=== PATIENT | female | born 1955 | race African-American/Black ===

== ENCOUNTER 2019-05-16 14:39 | Outpatient (CLI) | payer MEDICARE, OTHER ==
--- NOTE | 2019-05-16 16:37 | MMO ---
Bilateral MAMMO Bilat Screen [facility]. CLINICAL HISTORY: Patient is 64 years old and is seen for screening. The patient has no family history of breast cancer. The patient has no personal history of cancer. VIEWS: The views performed were: bilateral craniocaudal with tomosynthesis and bilateral mediolateral oblique with tomosynthesis. FILMS COMPARED: The present examination has been compared to prior imaging studies performed at MAMMOGRAM FINDINGS: There are scattered fibroglandular densities. Benign calcifications are noted bilaterally. There are no suspicious masses, suspicious calcifications, or new areas of architectural distortion. IMPRESSION: THERE IS NO MAMMOGRAPHIC EVIDENCE OF MALIGNANCY. A ROUTINE FOLLOW-UP MAMMOGRAM IN 1 YEAR IS RECOMMENDED. THE RESULTS OF THIS EXAM WERE SENT TO THE PATIENT. ACR BI-RADS Category 2 - Benign finding MAMMOGRAPHY NOTE: 1. A negative mammogram report should not delay a biopsy if a dominant of clinically suspicious mass is present. 2. Approximately 10% to 15% of breast cancers are not detected by mammography. 3. Adenosis and dense breasts may obscure an underlying neoplasm.
== END 2019-05-16 14:40 | disposition home or self-care (01) ==
LOC: BICMAMMO 14:39
PROVIDERS: ATTEND Family Medicine
DX: Z12.31 Encounter for screening mammogram for malignant neoplasm of breast (principal)
CPT/HCPCS: 77063; 77067

== ENCOUNTER 2020-12-19 21:45 | Inpatient (IN) | payer MEDICARE, OTHER ==
[~2020-12-19 21:45] MED LIST: Calcium Chloride 1 GM/10 ML Abboject SYRINGE ONE; EPINEPHrine 1 MG/10 ML Abboject SYRINGE ONE; Iopamidol-370 76% 500 ML 1 ML ONE; Sodium Bicarb 50 MEQ/50 ML Abboject 8.4% SYRINGE ONE
[2020-12-19] MEDS ORDERED: Fentanyl 100 MCG/2 ML VIAL ONE ×2 (21:56→22:28)
[2020-12-19 22:24] LABS: Hemoglobin 13.2 g/dL (12.0-16.0); Mean Corpuscular HGB CONC 31.3 g/dL (32.0-36.0); Mean Corpuscular Hemoglobin 28.9 pg (27.0-31.0); Mean Corpuscular Volume 92.3 fL (78.0-98.0); Mean Platelet Volume 8.9 fL (7.4-10.4); Platelet Count 285 thou/uL (130-400); RBC Distribution Width 14.2 % (11.5-14.5); Red Blood Cell (RBC) Count 4.56 mill/uL (4.20-5.40); White Blood Cell (WBC) Count 18.9 thou/uL (4.8-10.8)
[2020-12-19 22:30] LABS: Band 1 % (5-11); Eosinophils 1 % (0-10); Lymphocytes 37 % (21-51); MDiff Complete? YES; Monocytes 6 % (0-10); Neutrophil 53 % (42-75); Reactive Lymphocytes 1 % (0-10)
[2020-12-19] MEDS ORDERED: fentaNYL Citrate/PF 2,000 MCG in Sodium Chloride 0.9% 60 ML IV SCH (22:30)
[2020-12-19] MEDS ORDERED: Cefepime 2 GM VIAL ONE (22:31)
[2020-12-19] MEDS ORDERED: Norepinephrine 8 MG/0.9% NS 250 ML ONE (22:44)
[2020-12-19 22:49] LABS: CO2 Tension 69.1 mmHg (35.0-45.0); pH, Arterial 6.97 (7.35-7.45)
[2020-12-19 22:50] LABS: Bacteria/HPF 4+ HPF (None Seen); Bilirubin Negative (Negative); Blood, Urine 1+ (Negative); Clarity Turbid (Clear); Glucose, Urine (Dipstick) Greater than 1000 mg/dL (Negative); Ketone, Urine Negative (Negative); Leukocyte 75 Leu/uL (Negative); Nitrite 1+ (Negative); Protein, Urine (Dipstick) 100 mg/dL (Neg-Trace); Specific Gravity, Urine 1.015 (1.002-1.036); Urobilinogen Normal mg/dL (Less than 2); WBC/HPF Greater than 50 HPF (0-3)
[2020-12-19 22:50] LABS: Actual Bicarbonate (HCO3a) 14.6 mEq/L (22-28); Base Excess (BEa) -17.5 mEq/L (-2.0 to +3.0); O2 Tension (PaO2), arterial 351.6 mmHg (> 80.0)
[2020-12-19 22:51] LABS: Analyzer IN Cardio ER; Calcium, Ionized (arterial) 1.47 mmol/L (1.12-1.30); Carboxyhemoglobin (COHb) 3.8 gm% (0.0-3.0); Potassium - ABG Lab 3.74 mmol/L (3.70-5.30); Puncture Site RRA
[2020-12-19 22:52] LABS: ALV-art Gradient 275.025 mmHg (0-20)
[2020-12-19 22:58] LABS: Amphetamine Not Detected (NotDetected); Barbiturates Screen Not Detected (NotDetected); Benzodiazepine Screen Not Detected (NotDetected); Cocaine Metabolite Screen Not Detected (NotDetected); Medtox Control Line Valid? VALID (VALID); Medtox Reader # READER 4; Methadone Not Detected (NotDetected); Methamphetamine Not Detected (NotDetected); Opiate Screen Not Detected (NotDetected); Oxycodone Screen Not Detected (NotDetected); Phencyclidine (PCP) Not Detected (NotDetected); THC/Cannabinoid Screen Not Detected (NotDetected); Tricyclic Screen Not Detected (NotDetected)
[2020-12-19] MEDS ORDERED: Vancomycin 1.5 GRAM/300 ML BAG 1.5 GM in Premix Bag 1 BAG IVPB SCH (23:00)
[2020-12-19] MEDS ORDERED: Enoxaparin Sodium 80 MG/0.8 ML SYRINGE ONE (23:02)
[2020-12-19] MEDS ORDERED: Aspirin 300 MG Suppository ONE (23:02)
[2020-12-19 23:05] LABS: CKMB 2.3 ng/mL (0-6.6)
[2020-12-19 23:42] LABS: CO2 Tension 37.5 mmHg (35.0-45.0)
[2020-12-19 23:43] LABS: Actual Bicarbonate (HCO3a) 14.2 mEq/L (22-28); Base Excess (BEa) -13.1 mEq/L (-2.0 to +3.0); Carboxyhemoglobin (COHb) 2.6 gm% (0.0-3.0); Hemoglobin (Hb) 12.5 g/dL (12.0-16.0)
[2020-12-19 23:44] LABS: Analyzer IN Cardio ER; Calcium, Ionized (arterial) 1.22 mmol/L (1.12-1.30); Potassium - ABG Lab 4.61 mmol/L (3.70-5.30); Puncture Site RBA
[2020-12-19 23:45] LABS: ALV-art Gradient 253.625 mmHg (0-20)
[2020-12-19] MEDS ORDERED: Sodium Chloride 0.9% 1,000 ML IV SCH (23:45)
[2020-12-19] MEDS ORDERED: Ventilator Sedation Protocol 1 EACH FS SCH (23:45)
[2020-12-19 23:49] LABS: ALT (SGPT) 147 U/L (8-55); AST (SGOT) 231 U/L (5-34); Acetaminophen Less than 6.0 mcg/mL (10.0-30.0); Albumin 2.1 g/dL (3.4-4.8); Alcohol Less than 10 mg/dL (Less than 10); Alkaline Phosphatase 106 U/L (40-110); Anion Gap 17 mmol/L (10-20); BUN (Urea Nitrogen) 13 mg/dL (9.8-20.1); Bilirubin, Total 0.3 mg/dL (0.2-1.2); CK (CPK) 122 U/L (29-168); Calc. Creatinine Clearance 0 mL/min (70-130); Calcium 9.3 mg/dL (7.8-10.44); Chloride 119 mmol/L (98-107); Globulin 3.3 g/dL (2.4-3.5); Glucose 269 mg/dL (80-115); Potassium 5.1 mmol/L (3.5-5.1); Protein, Total 5.4 g/dL (5.8-8.1); Salicylate Less than 8.0 mg/dL (15.0-30.0); Sodium 140 mmol/L (136-145)
[2020-12-19] MEDS ORDERED: Ondansetron PF 4 MG/2 ML Vial IVP PRN (23:50)
[2020-12-19] MEDS ORDERED: Labetalol HCl 100 MG/20 ML VIAL SLOW IVP PRN (23:50)
[2020-12-19] MEDS ORDERED: Promethazine HCl 12.5 MG in Sodium Chloride 0.9% 50 ML IVPB PRN (23:50)
[2020-12-19] MEDS ORDERED: hydrALAZINE 20 MG/ML VIAL SLOW IVP PRN (23:50)
[2020-12-19 23:52] LABS: Carbon Dioxide 9 mmol/L (23-31)
[2020-12-19] MEDS ORDERED: Phenylephrine 40 MG in Sodium Chloride 0.9% 250 ML 250 ML IVPB PRN (23:54)
[2020-12-19] MEDS ORDERED: Norepinephrine 8 MG/0.9% NS 250 ML IVPB PRN (23:54)
[2020-12-19] MEDS ORDERED: Mag-Al 1200 mg/1200 mg/30 ML UDCUP PO PRN (23:54)
[2020-12-19] MEDS ORDERED: Milk Of Magnesia 30 ML UDCUP PO PRN (23:54)
[2020-12-19] MEDS ORDERED: Acetaminophen 325 MG Suppository PR PRN (23:54)
[2020-12-19] MEDS ORDERED: Bisacodyl 10 MG SUPP PR PRN (23:54)
[2020-12-19] MEDS ORDERED: HumaLOG 300 UNITS/3 ML VIAL SC PRN (23:54)
[2020-12-19] MEDS ORDERED: Electrolyte Replacement Protocol 1 EACH IVPB ONE (23:54)
--- NOTE | 2020-12-20 00:01 | PDOC.HHP ---
Hospitalist HPI Cardiac arrest History of Present Illness: Patient is a 65 year old female with PMH T2DM, HTN, CVA x 2, PVD who presents to ED for out of hospital cardiac arrest. Patient was at [facility], went outside and reported shortness of breath, she then lost consciousness and suffered arrest, nearby child life assistant gave CPR and EMS arrived, patient recieved 2 rounds epi and several rounds CPR, had ROSC, EKG was nonspecific but not a STEMI, UA suggestive of UTI, patient is currently intubated and sedated, on levophed, LFTs elevated, acidotic. initial rhythm was PEA per ED. her troponin was 1.384 and patient recieved ASA and lovenox therapeutic dose. WBC 18. Patient to be admitted to CCU. Allergies/Adverse Reactions: Allergy/AdvReac Type Severity Reaction Status Date / Time Sulfa (Sulfonamide Allergy Rash Verified 02/11/20 09:46 Antibiotics) Home Medications: Medication Instructions Recorded Confirmed Type Clopidogrel Bisulfate [Plavix] 75 mg PO DAILY 09/02/14 02/26/15 History Multivitamin [Multi-Vitamin Daily] 1 tab PO DAILY 09/02/14 02/26/15 History Simvastatin [Zocor] 20 mg PO QPM 09/02/14 02/26/15 History metFORMIN HCl [metFORMIN HCl ER] 1,000 mg PO BID 09/02/14 02/26/15 History ALPRAZolam [Xanax] 0.25 mg PO HS PRN 02/26/15 03/02/15 History FLUoxetine HCl [Prozac] 20 mg PO DAILY 02/26/15 02/26/15 History traMADol HCl [Ultram] 50 mg PO Q8H PRN 02/26/15 02/26/15 History Gabapentin [Neurontin] 300 mg PO TID #0 03/02/15 02/26/15 Rx Metoprolol Tartrate [Lopressor] 6.25 mg PO BID #0 tab 03/02/15 Rx Past History: PMHx: DM, HTN, CVA x 2, PVD PSHx: tubal ligatoin, c section, cholecystectomy, L second toe amputation FHx: unable to review Social: unable to review Hospitalist HPI ROS ROS unobtainable: due to endotracheal tube Hospitalist Exam General - other findings: intubated, sedated Eye: PERRL, anicteric sclera ENT: normocephalic atraumatic, moist mucosa ENT - other findings: et tube Neck: supple, no JVD Heart: RRR, no murmur, no gallops, no rubs Respiratory: CTAB, no wheezes, no rales, no ronchi Gastrointestinal: soft, non-distended, no rigidity Extremities: no cyanosis, no edema Extremities - other findings: bilateral BKA w healed stump Neurological - other findings: sedated Musculoskeletal: no muscle wasting Psychiatric - other findings: unable to evaluate Hospitalist Results Result Diagrams: 12/19/20 21:53 12/19/20 23:23 Lab results: Laboratory Last Values WBC 18.9 thou/uL (4.8-10.8) H 12/19/20 21:53 RBC 4.56 mill/uL (4.20-5.40) 12/19/20 21:53 Hgb 13.2 g/dL (12.0-16.0) 12/19/20 21:53 Hct 42.1 % (36.0-47.0) 12/19/20 21:53 MCV 92.3 fL (78.0-98.0) 12/19/20 21:53 MCH 28.9 pg (27.0-31.0) 12/19/20 21:53 MCHC 31.3 g/dL (32.0-36.0) L 12/19/20 21:53 RDW 14.2 % (11.5-14.5) 12/19/20 21:53 Plt Count 285 thou/uL (130-400) 12/19/20 21:53 MPV 8.9 fL (7.4-10.4) 12/19/20 21:53 Neutrophils % (Manual) 53 % (42-75) 12/19/20 21:53 Band Neuts % (Manual) 1 % (5-11) L 12/19/20 21:53 Lymphocytes % (Manual) 37 % (21-51) 12/19/20 21:53 Reactive Lymphs % 1 % (0-10) 12/19/20 21:53 Monocytes % (Manual) 6 % (0-10) 12/19/20 21:53 Eosinophils % (Manual) 1 % (0-10) 12/19/20 21:53 Basophils % (Manual) 1 % (0-2) 12/19/20 21:53 Lymphocytes # Not Reportable 12/19/20 21:53 Specimen Type ARTERIAL 12/19/20 23:35 Puncture Site RBA 12/19/20 23:35 Bicarbonate Actual 14.2 mEq/L (22-28) L 12/19/20 23:35 ABG pH 7.20 (7.35-7.45) L* 12/19/20 23:35 ABG pCO2 37.5 mmHg (35.0-45.0) 12/19/20 23:35 ABG pO2 56.0 mmHg (> 80.0) L* 12/19/20 23:35 ABG O2 Sat (Measured) 84.2 % (94.0-98.0) L* 12/19/20 23:35 ABG Base Excess -13.1 mEq/L (-2.0 to +3.0) L 12/19/20 23:35 ABG Hemoglobin 12.5 g/dL (12.0-16.0) 12/19/20 23:35 ABG Carboxyhemoglobin 2.6 gm% (0.0-3.0) 12/19/20 23:35 ABG Methemoglobin 0.40 gm% (0.04-1.52) 12/19/20 23:35 Taj Test POSITIVE 12/19/20 23:35 A-a O2 Gradient 253.625 mmHg (0-20) H 12/19/20 23:35 Sodium 141 mmol/L (135-148) 12/19/20 23:35 Potassium 4.61 mmol/L (3.70-5.30) 12/19/20 23:35 Chloride 116 mmol/L (98-106) H 12/19/20 23:35 Ionized Calcium 1.22 mmol/L (1.12-1.30) 12/19/20 23:35 Mode of Support SIMV 12/19/20 23:35 Mechanical Rate 25 min 12/19/20 23:35 Inspired O2 50 % 12/19/20 23:35 Tidal Volume 450 ml 12/19/20 23:35 Pressure Support 10 cmH2O 12/19/20 23:35 PEEP or CPAP 5.0 cmH2O 12/19/20 23:35 Sodium 140 mmol/L (136-145) 12/19/20 23:23 Potassium 5.1 mmol/L (3.5-5.1) 12/19/20 23:23 Chloride 119 mmol/L (98-107) H 12/19/20 23:23 Carbon Dioxide 9 mmol/L (23-31) L* 12/19/20 23:23 Anion Gap 17 mmol/L (10-20) 12/19/20 23:23 BUN 13 mg/dL (9.8-20.1) 12/19/20 23:23 Creatinine 1.04 mg/dL (0.6-1.1) 12/19/20 23:23 Estimated GFR (MDRD) 65 12/19/20 23:23 Glucose 269 mg/dL (80-115) H 12/19/20 23:23 Lactic Acid 7.4 mmol/L (0.5-2.2) H* 12/19/20 22:18 Calcium 9.3 mg/dL (7.8-10.44) 12/19/20 23:23 Total Bilirubin 0.3 mg/dL (0.2-1.2) 12/19/20 23:23 AST 231 U/L (5-34) H 12/19/20 23:23 ALT 147 U/L (8-55) H 12/19/20 23:23 Alkaline Phosphatase 106 U/L (40-110) 12/19/20 23:23 Creatine Kinase 122 U/L (29-168) 12/19/20 23:23 CK-MB (CK-2) 2.3 ng/mL (0-6.6) 12/19/20 21:53 Troponin I 1.384 ng/mL (< 0.028) H* 12/19/20 21:53 B-Natriuretic Peptide 1192.4 pg/mL (0-100) H 12/19/20 21:53 Serum Total Protein 5.4 g/dL (5.8-8.1) L 12/19/20 23:23 Albumin 2.1 g/dL (3.4-4.8) L 12/19/20 23:23 Globulin 3.3 g/dL (2.4-3.5) 12/19/20 23:23 Albumin/Globulin Ratio 0.6 g/dL (1.2-2.2) L 12/19/20 23:23 TSH 3rd Generation 2.3878 uIU/mL (0.35-4.94) 12/19/20 21:53 Urine Color Light-Yellow (Yellow) 12/19/20 22:24 Urine Clarity Turbid (Clear) A 12/19/20 22:24 Urine pH 6.0 (5.0-9.0) 12/19/20 22:24 Ur Specific [place] 1.015 (1.002-1.036) 12/19/20 22:24 Urine Protein 100 mg/dL (Neg-Trace) A 12/19/20 22:24 Urine Glucose (UA) Greater than 1000 mg/dL (Negative) A 12/19/20 22:24 Urine Ketones Negative mg/dL (Negative) 12/19/20 22:24 Urine Blood 1+ (Negative) A 12/19/20 22:24 Urine Nitrite 1+ (Negative) A 12/19/20 22:24 Urine Bilirubin Negative (Negative) 12/19/20 22:24 Urine Urobilinogen Normal mg/dL (Less than 2) 12/19/20 22:24 Ur Leukocyte Esterase 75 Myah/uL (Negative) A 12/19/20 22:24 Urine RBC 7-10 HPF (0-3) A 12/19/20 22:24 Urine WBC Greater than 50 HPF (0-3) A 12/19/20 22:24 Ur Squamous Epith Cells 11-20 HPF (0-3) A 12/19/20 22:24 Urine Bacteria 4+ HPF (None Seen) A 12/19/20 22:24 Hyaline Casts 4-6 LPF (0-3) A 12/19/20 22:24 Salicylates Less than 8.0 mg/dL (15.0-30.0) L 12/19/20 23:23 Urine Opiates Screen Not Detected (NotDetected) 12/19/20 22:24 Ur Oxycodone Screen Not Detected (NotDetected) 12/19/20 22:24 Urine Methadone Screen Not Detected (NotDetected) 12/19/20 22:24 Ur Propoxyphene Screen Not Detected (NotDetected) 12/19/20 22:24 Acetaminophen Less than 6.0 mcg/mL (10.0-30.0) L 12/19/20 23:23 Ur Barbiturates Screen Not Detected (NotDetected) 12/19/20 22:24 Ur Tricyclics Screen Not Detected (NotDetected) 12/19/20 22:24 Ur Phencyclidine Scrn Not Detected (NotDetected) 12/19/20 22:24 Ur Amphetamines Screen Not Detected (NotDetected) 12/19/20 22:24 U Methamphetamines Scrn Not Detected (NotDetected) 12/19/20 22:24 U Benzodiazepines Scrn Not Detected (NotDetected) 12/19/20 22:24 U Cocaine Metab Screen Not Detected (NotDetected) 12/19/20 22:24 U Cannabinoids Screen Not Detected (NotDetected) 12/19/20 22:24 Drug Screen Comment () 12/19/20 22:24 Plasma Alcohol Less than 10 mg/dL (Less than 10) 12/19/20 23:23 Additional comment: ed documents, labs, imaging reports, ekg reviewed by ms Hospitalist H&P A/P Plan: Patient is a 65 year old female with PMH T2DM, HTN, CVA x 2, PVD who presents to ED for out of hospital cardiac arrest. # cardiac arrest # acute hypoxic respiratory failure # shock, suspect septic shock - reported shortness of breath at [facility] and suffered witnessed arrest, ROSC w/ CPR and epi x 2, EKG was nonspecific T wave changes but not a STEMI, UA suggestive of UTI, patient is intubated and sedated, on levophed, LFTs elevated, acidotic. initial arrest rhythm was PEA per ED. her troponin was 1.384 and patient recieved ASA and lovenox therapeutic dose. WBC 18. Patient to be admitted to CCU. - consult pulmonary - CTA chest and CT abdomen, rule out PE and abdominal infection - echo - consult cardiology - continue vent w/ pulmonary assistance appreciated, continue levophed for goal MAP 65 # UTI - perhaps cause of septic shock, urine culture and broad spectrum antibiotics started, BCX drawn in ED # elevated LFTs # elevated troponins - suspect demand ischemia however follow up CT A/P and CTA chest to rule out pe, cholecystitis, colitis etc. - consult cardiology, echo # DM - SSI # HTN - hold meds # h/o CVA - continue DVT dose heparin, aspirin 65 minutes critical care time - need to find in town daughter phone number, other daughter in [place] contacted in ED but does not have local daughters number - presume full code for now
[2020-12-20] MEDS ORDERED: Acetaminophen 650 MG/20.3 ML UDCUP PO PRN (00:42)
[2020-12-20 00:56] LABS: SARS-CoV-2 NAA Rapid Test Not Detected (NotDetected)
[2020-12-20] MEDS ORDERED: Fentanyl CADD 100 ML IV SCH (01:00)
[2020-12-20] MEDS ORDERED: Morphine 2 MG/ML VIAL SLOW IVP PRN (01:00)
[2020-12-20] MEDS ORDERED: Fentanyl BOLUS 250 ML IVPB PRN (01:00)
[2020-12-20] MEDS ORDERED: Propofol 1,000 MG/100 ML VIAL IV PRN (01:00)
[2020-12-20] MEDS ORDERED: Lorazepam 2 MG/ML VIAL SLOW IVP PRN (01:00)
[2020-12-20] MEDS ORDERED: DISCONTINUE PREVIOUS NARCOTIC PAIN MEDICATIONS AND BENZODIAZEPINES FS SCH (01:00)
[2020-12-20] MEDS ORDERED: Electrolyte Replacement Protocol FS PRN (01:00)
[2020-12-20] MEDS ORDERED: Propofol BOLUS 1,000 MG/100 ML VIAL IV PRN (01:00)
[2020-12-20 01:17] LABS: Lactic Acid 2.6 mmol/L (0.5-2.2)
[2020-12-20 01:29] LABS: Troponin I 1.402 ng/mL (< 0.028)
[2020-12-20] MEDS ORDERED: Piperacillin/Tazobactam 3.375 GM VIAL ONE (02:03)
[2020-12-20] MEDS: Piperacillin/Tazobactam 3.375 GM in Sodium Chloride 0.9% 100 ML IVPB SCH ×2 (02:48→07:46)
[2020-12-20 05:08] LABS: Prothrombin Time 13.7 sec (12.0-14.7)
[2020-12-20 05:31] VITALS: BMI 47.5
[2020-12-20 05:53] LABS: Anion Gap 18 mmol/L (10-20); BUN (Urea Nitrogen) 15 mg/dL (9.8-20.1); Calc. Creatinine Clearance 76 mL/min (70-130); Calcium 8.6 mg/dL (7.8-10.44); Carbon Dioxide 16 mmol/L (23-31); Chloride 114 mmol/L (98-107); Glucose 303 mg/dL (80-115); Magnesium 1.8 mg/dL (1.6-2.6); Phosphorus 2.1 mg/dL (2.3-4.7); Potassium 4.9 mmol/L (3.5-5.1); Sodium 143 mmol/L (136-145)
[2020-12-20 06:01] LABS: Troponin I 1.519 ng/mL (< 0.028)
[2020-12-20 06:09] LABS: #Monocytes 0.7 thou/uL (0.11-0.59); #Neutrophils 17.2 thou/uL (1.40-6.50); %Basophils 0.2 % (0.0-1.0); %Eosinophils 0.2 % (0.0-10.0); %Lymphocytes 5.1 % (21.0-51.0); %Monocytes 3.8 % (0.0-10.0); %Neutrophils 90.7 % (42.0-75.0); Hemoglobin 12.7 g/dL (12.0-16.0); Mean Corpuscular Hemoglobin 26.5 pg (27.0-31.0); Mean Corpuscular Volume 88.2 fL (78.0-98.0); Mean Platelet Volume 8.1 fL (7.4-10.4); Platelet Count 326 thou/uL (130-400); RBC Distribution Width 14.2 % (11.5-14.5); Red Blood Cell (RBC) Count 4.78 mill/uL (4.20-5.40)
--- NOTE | 2020-12-20 07:30 | RAD ---
AP CHEST: HISTORY: Unresponsive. Ongoing CPR. FINDINGS: ET tube has tip above vee. There is vascular and interstitial congestion. Diffuse interstitial densities suggest diffuse inters titial edema associated with vascular congestion. There is a rounded density overlying the peripheral right mid lung which is of indeterminate signific ance. This could represent a lung mass or nodule and followup is recommended. POS: AGW
--- NOTE | 2020-12-20 07:54 | CT ---
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 She then collapsed to the ground unconscious. TECHNIQUE: Axial computed tomography images of the abdomen and pelvis with intravenous contrast. CONTRAST: With; ISOVUE 370,80mL COMPARISON: None provided. FINDINGS: LUNG BASES: Moderate-sized bilateral pleural effusions with patchy consolidative basilar opacities an d atelectasis LIVER: Unremarkable. GALLBLADDER AND BILE DUCTS: Surgically absent. Intrahepatic and extra hepatic biliary ductal dilatat ion. PANCREAS: Mild pancreatic ductal prominence. Parenchyma appears normal. SPLEEN: Unremarkable. ADRENAL GLANDS: Unremarkable. KIDNEYS, URETERS, AND BLADDER: Multiple bilateral simple renal cysts. No hydronephrosis or nephrolit hiasis. Urinary bladder is decompressed with inserted Vogel catheter. STOMACH AND BOWEL: No obstruction. No wall thickening. No CT evidence of colitis or acute diverticuli tis. APPENDIX: No CT evidence for appendicitis. PERITONEUM: No free fluid. No free air. LYMPH NODES: No lymphadenopathy. REPRODUCTIVE: Unremarkable as visualized. VASCULATURE: No aortic aneurysm. Scattered atherosclerotic vascular calcifications BONES: No fracture or suspicious osseous abnormality. ABDOMINAL WALL AND SOFT TISSUES: Unremarkable. IMPRESSION: No acute intra-abdominal or pelvic abnormality. Please see same day CT chest for thoraci c findings. ELECTRONICALLY SIGNED BY: Nic Larry DO Dec 20, 2020 12:46:18 AM CASH PROCESSING SPECIALIST FINAL REPORT EMERGENT AFTER HOURS CT ABDOMEN AND PELVIS WITH IV CONTRAST: HISTORY: Cardiac arrest. Patient complained of shortness of breath and then collapsed. COMPARISON: None. IMPRESSION: 1. Moderate size bilateral pleural effusions with adjacent consolidation which could be related to at electasis versus pneumonia. Aspiration pneumonitis is a possibility. 2. Postcholecystectomy changes. Intra and extrahepatic biliary ductal dilatation is present which cou ld be related to reservoir effect. In addition, there is mild pancreatic ductal dilatation. 3. Nasogastric tube noted in place with tip in body of stomach. Stomach is incompletely distended, bu t there does appear to be mild wall thickening involving the fundus and proximal body of the stomach. This is overall nonspecific. Gastritis is a possibility. 4. Bilateral renal cysts and subcentimeter too small to characterize hypodense lesions in each kidney also statistically likely representing cysts. 5. Urinary bladder is nondistended with Vogel catheter in place. 6. Appendix is normal in caliber without CT evidence of appendicitis. 7. Right common femoral vein central venous catheter noted in place. 8. Small pericardial effusion. 9. Findings are in agreement with preliminary report by [facility]. Transcribed Date/Time: 12/20/2020 8:08 AM
--- NOTE | 2020-12-20 08:01 | CT ---
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 She then collapsed to the ground unconscious. TECHNIQUE: Axial CTA images of the chest with intravenous contrast. Three-dimensional MIP/volume rend ered reformations were performed. CONTRAST: With; ISOVUE 370,80mL COMPARISON: None provided. FINDINGS: PULMONARY ARTERIES There is no intraluminal filling defect suspicious for PE. AORTA No thoracic aortic aneurysm or dissection. LUNGS Patchy consolidative and interstitial opacities bilaterally. PLEURAL SPACES Moderate sized bilateral pleural effusions with compressive atelectasis. No pneumotho rax. HEART AND MEDIASTINUM Cardiomegaly with small pericardial effusion. Coronary artery atherosclerotic disease LYMPH NODES No lymphadenopathy. BONES No focal osseous abnormality or acute fracture. CHEST WALL AND UPPER ABDOMEN Images through the upper abdomen are unremarkable. The chest wall is unr emarkable. IMPRESSION: 1. Findings most consistent with cardiogenic interstitial and alveolar edema. Underlying infection not excluded 2. Moderate sized bilateral pleural effusions with compressive atelectasis. 3. Cardiomegaly with small pericardial effusion. ELECTRONICALLY SIGNED BY: Nic Larry DO Dec 20, 2020 12:44:16 AM ENGINE RESEARCH ENGINEER FINAL REPORT EMERGENT AFTER HOURS CT ANGIOGRAM THORAX WITH IV CONTRAST AND 3D RECONSTRUCTIONS: HISTORY: Patient complained of shortness of breath and then collapsed and became unconscious. Cardiac arrest. COMPARISON: 09/14/2014. IMPRESSION: 1. Endotracheal tube noted in place and above the level of the vee. Nasogastric tube is in place w ith tip coursing into the stomach. 2. Moderate bilateral pleural effusions with consolidation seen in the lower lobes and bilateral uppe r lobes. Degree of consolidation is more than expected for passive atelectasis. Findings are worrisome for pneumonia and/or aspiration pneumonitis with probable element of pulmonary edema. 3. Small pericardial effusions and mild cardiomegaly. 4. Vascular calcifications in the coronary arteries and thoracic aorta. 5. No CT evidence of a pulmonary embolus. 6. Enlarged mediastinal lymph nodes which are also increased in number with lymph nodes measuring up to 1.2 cm in short axis dimension. Findings could be related to reactive lymphadenopathy. 7. Mild wall thickening/edema involving the visualized body of the stomach and fundus. Gastritis is a possibility. 8. Postcholecystectomy changes and findings of intrahepatic biliary ductal dilatation. This is better visualized on CT abdomen. 9. Findings are in agreement with preliminary report by [facility]. Transcribed Date/Time: 12/20/2020 8:14 AM
[2020-12-20] MEDS ORDERED: Famotidine/PF 20 mg/2ml Vial ONE (08:24)
[2020-12-20] MEDS ORDERED: Polyethylene Glycol 3350 17 GM Packet PO SCH (09:00)
[2020-12-20] MEDS ORDERED: Aspirin 81 mg Enteric Coated Tablet PO SCH (09:00)
[2020-12-20] MEDS ORDERED: Piperacillin/Tazobactam 3.375 GM in Sodium Chloride 0.9% 100 ML IVPB SCH (09:00)
[2020-12-20] MEDS ORDERED: Famotidine/PF 20 mg/2ml Vial SLOW IVP SCH (09:00)
[2020-12-20] MEDS ORDERED: Heparin 5,000 UNITS/ML VIAL SC SCH (09:00)
[2020-12-20 09:08] VITALS: TEMP 98.8
[2020-12-20 09:11] LABS: Actual Bicarbonate (HCO3a) 15.8 mEq/L (22-28); Analyzer IN Cardio ER; Base Excess (BEa) -7.6 mEq/L (-2.0 to +3.0); CO2 Tension 26.9 mmHg (35.0-45.0); Calcium, Ionized (arterial) 1.18 mmol/L (1.12-1.30); Carboxyhemoglobin (COHb) 0.8 gm% (0.0-3.0); Hemoglobin (Hb) 13.3 g/dL (12.0-16.0); Potassium - ABG Lab 4.41 mmol/L (3.70-5.30); pH, Arterial 7.39 (7.35-7.45)
--- NOTE | 2020-12-20 09:11 | PDOC.CONS ---
- Consultation Encounter Date: 12/20/20 Encounter Time: 09:00 Cardiology Consult Report Sanitation Officer: Dr. Martinez Silverman MD Resident: Dr. Jelly Morton MD HPI: 65 year old AA female with PMH notable for DMII, HTN, CVA x 2, and PVD who presented to ED for an out of hospital cardiac arrest. Of note, history was obtained from chart review & nursing staff reports as patient was intubated & sedated at time of exam. Reportedly, the patient was at [facility] yesterday evening and was not feeling well so family called EMS to come and evaluate her. She then went outside and told nearby police officers that she was feeling short of breath after which she lost consciousness and was reportedly in cardiac arrest. She was down ~1 minute or less before a nearby finisher polisher started CPR. Shortly after EMS arrived & resuscitation efforts were continued en route to the ED. On arrival to the ED CPR was continued as the patient was noted to be in PEA. She received 2 doses of epi, several more rounds of CPR, was intubated & had a R fem line placed. ROSC was eventually achieved after ~20 minutes of CPR. Cardiology was consulted to evaluate the patient due to the possibility of an underlying cardiac abnormality being a potential etiology of her arrest. PMH: DMII, HTN, CVA x 2, PVD PSH: bilateral tubal ligation, c section, cholecystectomy, Bilateral BKAs Medications: plavix, simvastatin, metformin, xanax, prozac, tramadol, gabapentin, metoprolol tartrate Allergies: sulfa FH: unable to obtain Social: unable to obtain Objective: Labs: WBC: 18.9--> 19 Na: 143 K: 4.9 Cl: 114 HCO3: 16 BUN/Cr: 15/0.94 B TSH: WNLs Mg 1.8 phos: 2.1 Lactate: 7.4--> 2.3 Troponin: 1.354-->1.402-->1.579 BNP: 1192.4 COVID PCR: negative UDS: negative Imaging: CXR: Right mid lung mass vs. nodule and bilateral vascular & interstitial congestion Chest CTA: no PE, large B/L pleural effusions vs. aspiration pneumonitis, small pericardial effusion Abd/pelvis CT: possible gastritis & moderate B/L pleural effusions PE: Vitals: Tmax: 98.8F BP: 103/68, MAP 79 (off pressors), HR: 89 RR: 24 on vent O2 sat: 96% on SIMV mode set at rate of 24, TV 450, FiO2 100%, PEEP 5 General: Sedated and intubated in NAD HEENT: Normocephalic, atraumatic, pupils fixed and ~2mm (s/p fentanyl bolus) CV: RRR, no murmurs, no JVD or LE edema noted Lungs: CTA in B/L upper lung hernandez w/ crackles in B/L bases Abdomen: midlly distended w/ NL bowel sounds Ext: s/p B/L BKAs, no edema or cyanosis noted Neuro: sedated w/ fentanyl so not following commands, pupils fixed, no response to painful stimuli Assessment/Plan: 65 year old AA female with PMH notable for DMII, HTN, CVA x 2, and PVD who presented to ED for an out of hospital cardiac arrest now s/p ROSC due to presumed septic shock 2/2 a UTI and possible aspiration pneumonitis. 1. s/p ROSC 2/2 septic shock from UTI and/or aspiration pneumonitis: Patient remains stable on ventilator. Not requiring pressor support at this time. Suspect acute cardiac and respiratory decompensation was 2/2 septic shock; however, given PMH cannot r/o possible NSTEMI and/or acute decompensated CHF exacerbation in setting of acute infection as contributing factors to her arrest as well. ECHO to be obtained today to assess cardiac function. Consider risk stratification labs such as lipid panel as well. Continue acute infection management & respiratory support per primary team and intensivists. 2. Elevated troponin: Initial troponin on arrival elevated at 1.354 & has since uptrended slightly x2. EKG notable for nonspecific ST changes but no ST elevations noted. Suspect most likely type II NSTEMI from demand ischemia in setting of septic shock. s/p ASA & Th lovenox in the ED. However, given risk factors based on PMH will consider a LHC once patient recovers to r/o any underlying CAD. 3. Elevated BNP: 1192.4 w/ large B/L pleural effusions on imaging on arrival. Suspect patient does have some underlying CHF but will need UTD ECHO to confirm. Per chart review last ECHO was done in 08/2014 following a CVA & was notable for hyperdynamic LV function w/ an EF of 70-75% & asymmetric septal hypertrophy & LHV w/ mild TR. No additional overt signs of volume overload on exam other than crackles in lung bases. s/p 2.5L of NS total since arrival. IVF now dc'd since BP remains stable even off of pressors at this point. Continue strict I&Os. Per nursing staff UO ~50cc/hr since arrival. Consider diuresis to improve respiratory status once BP more stable as still low/NL on exam. ECHO today. Further recs pending ECHO results. 4. Metabolic & respiratory acidosis: lactate initially 7.4 & PCO2 via ABG in 60s. Both have improved now s/p intubation. To be managed per primary team/intensivists. 5. DMII 6. Hx CVA x2 7. HTN 8. PVD
[2020-12-20 09:12] LABS: ALV-art Gradient 630.475 mmHg (0-20); O2 Tension (PaO2), arterial 48.9 mmHg (> 80.0); Puncture Site LFA
[2020-12-20 10:09] VITALS: BP 109/67
[2020-12-20 13:13] LABS: SARS-CoV-2 PCR by NAA Not Detected (NotDetected)
--- NOTE | 2020-12-20 13:34 | PDOC.DS.DS ---
Provider Date of Admission: 12/19/20 21:56 Date of Discharge: 12/20/20 Admitting Provider: Cesario Ortega MD Primary Care Physician: Roseann New MD Course Hospital Course: patient is a 65 year old female with PMH T2DM, HTN, CVA x 2, PVD who presents to ED for out of hospital cardiac arrest. Patient was at [facility], went outside and reported shortness of breath, she then lost consciousness and suffered arrest, nearby manager wound care gave CPR and EMS arrived, patient recieved 2 rounds epi and several rounds CPR, had ROSC, EKG was nonspecific but not a STEMI, UA suggestive of UTI, patient is currently intubated and sedated, on levophed, LFTs elevated, acidotic. initial rhythm was PEA per ED. her troponin was 1.384 and patient recieved ASA and lovenox therapeutic dose. WBC 18. Patient to be admitted to CCU Due to ICU bed availability, patient will be transfered to [facility] - patient examined before transfer - receiving fentanyl boluses - on MV with adequate saturation - levophed has been discontinued - family members where contacted and agree with transfer Resuscitation Status: 12/19/20 23:50 Resuscitation Status Routine Resuscitation Status: FULL: Full Resuscitation Lab Results: 12/20/20 04:51 12/20/20 04:51 Abnormal Lab Results - Last 48 hrs 12/19/20 21:53: Troponin I 1.384 H* 12/19/20 21:53: WBC 18.9 H, MCHC 31.3 L, Band Neuts % (Manual) 1 L 12/19/20 21:53: B-Natriuretic Peptide 1192.4 H 12/19/20 22:01: Bicarbonate Actual 14.6 L, ABG pH 6.97 L*, ABG pCO2 69.1 H*, ABG pO2 351.6 H, ABG O2 Sat (Measured) 99.0 H, ABG Base Excess -17.5 L, ABG Carboxyhemoglobin 3.8 H, A-a O2 Gradient 275.025 H, Chloride 113 H, Ionized Calcium 1.47 H 12/19/20 22:18: Lactic Acid 7.4 H* 12/19/20 22:24: Urine Clarity Turbid A, Urine Protein 100 A, Urine Glucose (UA) Greater than 1000 A, Urine Blood 1+ A, Urine Nitrite 1+ A, Ur Leukocyte Esterase 75 A, Urine RBC 7-10 A, Urine WBC Greater than 50 A, Ur Squamous Epith Cells 11- 20 A, Urine Bacteria 4+ A, Hyaline Casts 4-6 A 12/19/20 23:23: Chloride 119 H, Carbon Dioxide 9 L*, AST 231 H, ALT 147 H, Serum Total Protein 5.4 L, Albumin 2.1 L, Albumin/Globulin Ratio 0.6 L, Salicylates Less than 8.0 L, Acetaminophen Less than 6.0 L 12/19/20 23:35: Bicarbonate Actual 14.2 L, ABG pH 7.20 L*, ABG pO2 56.0 L*, ABG O2 Sat (Measured) 84.2 L*, ABG Base Excess -13.1 L, A-a O2 Gradient 253.625 H, Chloride 116 H 12/20/20 00:53: Troponin I 1.402 H* 12/20/20 00:53: Lactic Acid 2.6 H 12/20/20 04:51: Troponin I 1.519 H* 12/20/20 04:51: Chloride 114 H, Carbon Dioxide 16 L, Phosphorus 2.1 L 12/20/20 04:51: WBC 19.0 H, MCH 26.5 L, MCHC 30.0 L, Neutrophils % 90.7 H, Lymphocytes % 5.1 L, Neutrophils # 17.2 H, Lymphocytes # 1.0 L, Monocytes # 0.7 H 12/20/20 09:05: Bicarbonate Actual 15.8 L, ABG pCO2 26.9 L, ABG pO2 48.9 L*, ABG O2 Sat (Measured) 85.6 L*, ABG O2 Content 15.8 L, ABG Base Excess -7.6 L, ABG Oxyhemoglobin 84.7 L, ABG Deoxyhemoglobin 14.2 H, A-a O2 Gradient 630.475 H, C hloride 115 H Vitals: Vital Signs (12 hours) Temp Pulse Resp BP BP Pulse Ox 12/20/20 10:08 98.8 F 89 24 H 109/67 97 12/20/20 09:07 98.8 F 90 24 H 132/75 96 12/20/20 08:51 89 100/70 12/20/20 08:00 98.6 F 90 24 H 129/79 99 Weight Weight 175 lb 14.862 oz Physical Exam: The patient was seen and examined on the day of discharge. Plan Home Medications: Medication Instructions Recorded Confirmed Type Clopidogrel Bisulfate [Plavix] 75 mg PO DAILY 09/02/14 02/26/15 History Multivitamin [Multi-Vitamin Daily] 1 tab PO DAILY 09/02/14 02/26/15 History Simvastatin [Zocor] 20 mg PO QPM 09/02/14 02/26/15 History metFORMIN HCl [metFORMIN HCl ER] 1,000 mg PO BID 09/02/14 02/26/15 History ALPRAZolam [Xanax] 0.25 mg PO HS PRN 02/26/15 03/02/15 History FLUoxetine HCl [Prozac] 20 mg PO DAILY 02/26/15 02/26/15 History traMADol HCl [Ultram] 50 mg PO Q8H PRN 02/26/15 02/26/15 History Gabapentin [Neurontin] 300 mg PO TID #0 03/02/15 02/26/15 Rx Metoprolol Tartrate [Lopressor] 6.25 mg PO BID #0 tab 03/02/15 Rx Allergies: Sulfa (Sulfonamide Antibiotics) Allergy (Verified 02/11/20 09:46) Rash Referrals: Roseann New MD [Primary Care Provider] - Disposition: ED DISCHARGE TO IN
[2020-12-20] MEDS ORDERED: VANCOMYCIN 1.25 GM/250 ML BAG 1.25 GM in Premix Bag 1 BAG IVPB SCH (23:00)
--- NOTE | 2020-12-23 07:05 | PQF ---
CLINICAL DOCUMENTATION CLARIFICATION FORM: Dear : Cesario Ortega Date / Time: 12/23/20 Please exercise your independent, professional judgment in responding to the clarification form. Clinical indicators are provided on the bottom of this form for your review Based on your clinical judgment, can you please specify etiology of patient s cardiac arrest? Please check appropriate box(es) to determine sequence of events: [ ] Septic Shock [ ] Aspiration PNA [ ] NSTEMI [ ] Other diagnosis ,please specify [ ] Unable to determine Physician Signature: Date/Time: For continuity of documentation, please document condition throughout progress notes and discharge summary. Thank You. To be completed by CDI/Coding staff for physician review: Present Clinical Indicators - Signs / Symptoms / Labs Results and Location in Medical Record [x] Cardiac Arrest HP 12/19 [x] Elevated troponin suspected demad ischemia HP 12/19 [x] feeling SOB after which she lost consciousness Consult 12/20 [x] suspect acute cardiac and respiratory decompresation was 2/2 septic shock Consult 12/20 [x] Troponin: 12/19=1.384 12/20=1.402 Laboratory 12/19 Present Risk Factors Results and Location in Medical Record [x] 65 years old female HP 12/19 [x] DM HP 12/19 [x] HTN HP 12/19 [x] Acute hypoxic respiratory failure HP 12/19 [x] Septic Shock HP 12/19 Present Treatments Results and Location in Medical Record [x] Intubation with ventilation HP 12/19 [x] CPR HP 12/19 [x] Levophed 250ml IV MAR 12/19 [x] Lovenox 80mg IV MAR 12/19 [x] Aspirin 300mg Oral JAN 20 [x] Cardiology Consult Consult 12/20 CDS/Glass Inserter Signature: Avila Nicole Phone #: [phone] Date/Time: 12/23/20 This is a permanent part of the Medical Record [facility]
--- NOTE | 2020-12-28 19:18 | EKG ---
Test Reason : CPR Blood Pressure : / mmHG Vent. Rate : 127 BPM Atrial Rate : 254 BPM P-R Int : 000 ms QRS Dur : 086 ms QT Int : 298 ms P-R-T Axes : 069 068 059 degrees QTc Int : 433 ms Sinus tachycardia Low voltage QRS Nonspecific ST and T wave abnormality Abnormal ECG Confirmed by BHUMI BAUTISTA DO ([id number]), publications editor ROBERTO BRICEÑO ([id number]) on 12/28/2020 7:17:56 PM Referred By: Confirmed By:BHUMI BAUTISTA DO
== END 2020-12-20 11:02 | disposition short-term general hospital, planned readmission (82) | DRG 296 ==
LOC: ERS 21:45 → ERHOLD 21:56
PROVIDERS: ADMIT Internal Medicine; ATTEND Internal Medicine
PROC: 0BH17EZ Insertion of Endotracheal Airway into Trachea, Via Natural or Artificial Opening (ICD-10-PCS; principal; 2020-12-19)
PROC: 5A1945Z Respiratory Ventilation, 24-96 Consecutive Hours (ICD-10-PCS; 2020-12-19)
PROC: 3E033XZ Introduction of Vasopressor into Peripheral Vein, Percutaneous Approach (ICD-10-PCS; 2020-12-19)
DX: I46.9 Cardiac arrest, cause unspecified (principal); A41.9 Sepsis, unspecified organism; R65.21 Severe sepsis with septic shock; J96.01 Acute respiratory failure with hypoxia; N39.0 Urinary tract infection, site not specified; E87.2 Acidosis; Z20.822 Contact with and (suspected) exposure to COVID-19; E11.51 Type 2 diabetes mellitus with diabetic peripheral angiopathy without gangrene; I10 Essential (primary) hypertension; Z86.73 Personal history of transient ischemic attack (TIA), and cerebral infarction without residual deficits; Z88.2 Allergy status to sulfonamides; Z79.01 Long term (current) use of anticoagulants; Z79.84 Long term (current) use of oral hypoglycemic drugs; Z79.899 Other long term (current) drug therapy; Z98.51 Tubal ligation status; Z90.49 Acquired absence of other specified parts of digestive tract; Z89.422 Acquired absence of other left toe(s)
CPT/HCPCS: 31500; 36415; 36556; 36600; 51702; 71045; 71275; 74177; 80048; 80053; 80306; 80307; 81003; 81015; 82550; 82553; 82805; 83605; 83735; 83880; 84100; 84443; 84484; 85025; 85610; 87077; 87086; 87186; 87635; 92950; 93005; 94002; 94760; 96365; 96366; 96367; 96368; 96372; 96375; 96376; 99292; J0171; J0692; J1644; J1650; J2543; J3010; J3370; J3490; Q9967; S0028; U0002; U0003; U0005